=== PATIENT | female | born 1930 | race Caucasian/White ===

== ENCOUNTER 2019-10-29 14:48 | Inpatient (IN) | payer OTHER ==
[~2019-10-29] VITALS: Ht 167.6 cm; Wt 65.5 kg
[2019-10-29 15:30] LABS: Basophils # (auto) 0 10 ^3/uL (0-0.2); Basophils % (auto) 0.1 % (0.0-2.0); Eosinophils # (auto) 0 10 ^3/uL (0-0.8); Hematocrit 46.3 % (36.0-46.0); Hemoglobin 15.4 g/dL (12.2-16.2); Lymphocytes # (auto) 0.6 10 ^3/uL (0.4-5.4); Lymphocytes % (auto) 5.4 % (10.0-50.0); Mean Corpuscular Hgb Conc. 33.3 g/dL (32.0-36.0); Mean Corpuscular Volume 90.1 fL (80.0-100.0); Monocytes # (auto) 0.7 10 ^3/uL (0-1.3); Neutrophils # (auto) 10.6 10 ^3/uL (1.6-8.6); Neutrophils % (auto) 88.5 % (37.0-80.0); Platelet Count (auto) 163 10^3/uL (140-450); Red Blood Cells 5.14 10^6/uL (4.0-5.20); Red Cell Distribution Width 14.3 % (11.8-14.3)
[2019-10-29 15:43] LABS: Albumin 1.8 g/dL (3.4-5.0)
[2019-10-29 15:47] LABS: BUN/Creatinine Ratio 26.1; Total Protein 3.9 g/dL (6.4-8.2)
[2019-10-29] MEDS ORDERED: cloNIDine HCL 0.1 MG TAB PO ONE (16:15)
[2019-10-29 16:17] LABS: Potassium 2.2 mmol/L (3.5-5.1)
[2019-10-29 16:18] LABS: Calcium 5.1 mg/dL (8.5-10.1)
[2019-10-29] MEDS ORDERED: CALCIUM GLUC 4.65meq/50ml D5AE 50 ML IV ONE (16:30)
[2019-10-29] MEDS ORDERED: POTASSIUM EFFERVESENT TAB 25 MEQ PO ONE (16:30)
[2019-10-29 16:49] LABS: INR 1.12 (0.9-1.15); Partial Thromboplastin Time 29.9 sec (23.0-31.2)
[2019-10-29] MEDS ORDERED: SODIUM CHLORIDE 0.9% 500 ML IVB ONE (17:07)
[2019-10-29] MEDS ORDERED: SODIUM CHLORIDE 0.9% 1,000 ML IV ONE (17:07)
[2019-10-29] MEDS ORDERED: LABETALOL HCL 5 MG/ML 4ML SYRINGE IV ONE (17:15)
[2019-10-29 18:19] LABS: Magnesium 2.5 mg/dL (1.6-2.6)
[2019-10-29] MEDS ORDERED: ONDANSETRON HCL 4 MG/2 ML VIAL IV ONE (18:30)
[2019-10-29] MEDS ORDERED: cefTRIAXone 1GM/50ML D5W 50 ML IV ONE ×2 (18:30→20:00)
[2019-10-29 18:51] LABS: Urine Bacteria MOD /hpf (None Seen); Urine Blood 1+ /uL (Negative); Urine Specific Gravity 1.015 (1.001-1.035); Urine WBC 668 /hpf (0 - 5); Urine WBC Clumps PRESENT /hpf (None Seen)
[2019-10-29 19:17] LABS: Calcium 9.6 mg/dL (8.5-10.1); Potassium 3.8 mmol/L (3.5-5.1)
[2019-10-29] MEDS ORDERED: ENOXAPARIN SOD 100 MG/1 ML SYRINGE SC ONE (20:00)
[2019-10-29] MEDS ORDERED: NITROGLYCERIN 0.4 MG SL TAB SL PRN (20:00)
[2019-10-29] MEDS ORDERED: hydrALAZINE HCL 20 MG/ML VL IV PRN (20:00)
[2019-10-29] MEDS ORDERED: MORPHINE SULF INJ 2 MG/ML SYRINGE 1ML IV PRN (20:00)
[2019-10-29] MEDS: D5W/SOD CHL 0.45%/KCL 20MEQ 1,000 ML IV SCH (21:09)
[2019-10-29 22:00] VITALS: BP 153/70
--- NOTE | 2019-10-29 23:15 | NUR ---
Pt arrived on unit. No s/s of distress at this time. Pt confused and disoriented, garbled language, distractible. Pt oriented to unit, provided with call light. Pt in A bed has sitter and was asked to monitor B bed as needed. Charge nurse notified, possible sitter assignment for AM shift. Pt heart rate noted to run bradycardic at 50-60bpm. Pt will occasionally drop to mid 30s briefly and return to baseline. When stimulated, HR will be steady in the 60s bpm. All needs addressed at this time. Safety measures in place, bed in lowest position, bed rails raised x2, call light within reach. Will continue to
--- NOTE | 2019-10-30 02:30 | NUR ---
Supervisor [employer] consult placed for unstable and inadequate living situation.
[2019-10-30] MEDS: D5W/SOD CHL 0.45%/KCL 20MEQ 1,000 ML IV SCH (04:20)
[2019-10-30 05:00] VITALS: BP 130/54
--- NOTE | 2019-10-30 05:29 | NUR ---
Attempted to contact daughter Shirley to obtain pt history. Pt not able to coherently respond to questions. Will attempt to contact again and relay message to day RN.
[2019-10-30 05:51] LABS: Basophils # (auto) 0 10 ^3/uL (0-0.2); Basophils % (auto) 0.2 % (0.0-2.0); Eosinophils # (auto) 0 10 ^3/uL (0-0.8); Eosinophils % (auto) 0.1 % (0.0-7.0); Hematocrit 43.3 % (36.0-46.0); Hemoglobin 14.6 g/dL (12.2-16.2); Lymphocytes # (auto) 1.1 10 ^3/uL (0.4-5.4); Lymphocytes % (auto) 8.5 % (10.0-50.0); Mean Corpuscular Hemoglobin 30.6 pg (28.0-32.0); Mean Corpuscular Hgb Conc. 33.7 g/dL (32.0-36.0); Mean Corpuscular Volume 90.9 fL (80.0-100.0); Monocytes # (auto) 1.1 10 ^3/uL (0-1.3); Monocytes % (auto) 9.1 % (0.0-12.0); Neutrophils # (auto) 10.4 10 ^3/uL (1.6-8.6); Neutrophils % (auto) 82.1 % (37.0-80.0); Platelet Count (auto) 169 10^3/uL (140-450); Red Blood Cells 4.76 10^6/uL (4.0-5.20); White Blood Cell 12.7 10^3/uL (4.4-10.8)
[2019-10-30 06:10] LABS: Albumin 2.9 g/dL (3.4-5.0); Calcium 8.4 mg/dL (8.5-10.1); Magnesium 2.4 mg/dL (1.6-2.6); Potassium 4.5 mmol/L (3.5-5.1)
[2019-10-30 06:14] LABS: BUN/Creatinine Ratio 17.4; Bilirubin, Total 0.8 mg/dL (0.2-1.0); Phosphorus 4.6 mg/dL (2.5-4.90); Total Protein 6.2 g/dL (6.4-8.2)
[2019-10-30 06:29] LABS: INR 1.19 (0.9-1.15); Partial Thromboplastin Time 39.6 sec (23.0-31.2)
[2019-10-30] MEDS ORDERED: VANCOMYCIN 1GM/250ML 250 ML IV ONE (07:00)
[2019-10-30] MEDS ORDERED: MORPHINE SULF INJ 2 MG/ML SYRINGE 1ML IV PRN ×2 (07:00)
[2019-10-30] MEDS ORDERED: SPIRONOLACTONE 25 MG TAB PO ONE (07:00)
[2019-10-30] MEDS ORDERED: DOCUSATE SOD 100 MG CAP PO PRN (07:00)
[2019-10-30] MEDS ORDERED: NITROGLYCERIN 0.4 MG SL TAB SL PRN (07:00)
[2019-10-30] MEDS ORDERED: LORazepam 0.5 MG TAB PO PRN (07:00)
[2019-10-30] MEDS ORDERED: VANCOMYCIN PER PHARMACY 0 MG IV SCH (07:00)
[2019-10-30] MEDS ORDERED: ALUM & MAG HYDROX-SIMETH LIQ(MAALOX) 30 ML PO PRN (07:00)
[2019-10-30] MEDS ORDERED: ACETAMINOPHEN 325 MG TAB PO PRN (07:00)
[2019-10-30] MEDS ORDERED: ONDANSETRON HCL 4 MG/2 ML VIAL IV PRN (07:00)
[2019-10-30] MEDS ORDERED: LACTATED RINGER'S 1,000 ML IV ONE (07:00)
[2019-10-30] MEDS ORDERED: LISINOPRIL 20 MG TAB PO ONE (07:00)
[2019-10-30] MEDS ORDERED: CALCIUM W/VIT D (600MG/400IU) TAB PO ONE (07:15)
[2019-10-30] MEDS ORDERED: POTASSIUM CHL 20 Meq TABLET PO ONE (07:15)
[2019-10-30] MEDS ORDERED: MAGNESIUM SULFATE 1GM/100ML 100 ML IV ONE (07:15)
[2019-10-30] MEDS ORDERED: SOD CHL 0.9%/ KCL 20MEQ 1,000 ML IV SCH (07:45)
[2019-10-30] MEDS ORDERED: hydrALAZINE HCL 20 MG/ML VL IV PRN (07:45)
[2019-10-30 09:00] VITALS: BP 129/74
[2019-10-30] MEDS ORDERED: METOPROLOL SUCCINATE XL 50 MG TAB PO SCH (10:00)
[2019-10-30] MEDS: ASPirin 81 mg TAB PO SCH (11:15)
[2019-10-30] MEDS: ENOXAPARIN SOD 30 MG/0.3 ML SYRINGE SC SCH (11:16)
[2019-10-30] MEDS: HYDROcodone-ACET 5/325MG TAB PO PRN ×2 (11:21→22:21)
[2019-10-30] MEDS ORDERED: SODIUM CHLORIDE 0.9% 1,000 ML IV ONE (11:45)
--- NOTE | 2019-10-30 11:51 | NUR ---
assessment re:ss consult Patient is a 89 year old female who is confused. Prior to admission patient lived home with her daughter Shirley who is patients caregiver. I spoke to patients daughter Stefany who is POA and she will be faxing me the POA. Per Stefany patient had a fall at home getting out of bed. Shirley found patient on the floor and called 911. Patient will need rehab on discharge. Patients PCP is Dr Fish. Patient has a cane at home. Patient will also need a fww before discharging from SNF. SS consult states patient lives alone. Patient does not live alone, she lives with her daughter. Patient is confused and family will be setting up more help in the home. I have provided Stefany with [facility] resources and private pay resources. I will continue to monitor and follow up as appropriate. Stefany verbalized understanding and agreed to discharge plan to SNF. Addendum: 10/30/19 at 1206 by Maura CAREY Amended: Links added.
[2019-10-30] MEDS: PIPERACILLIN-TAZOB 2.25GM 50 ML IV SCH ×3 (11:59→23:50)
--- NOTE | 2019-10-30 12:29 | NUR ---
CT Chest - need consent Patient is unable to sign consent. Spoke with daughter, Shirley, and she said she would need to speak with her brother and sister before she would consent to anything. She will call and notify this nurse when a decision has been made.
[2019-10-30] MEDS: SODIUM CHLORIDE 0.9% 1,000 ML IV SCH (13:00)
[2019-10-30 15:28] VITALS: BP 121/60
[2019-10-30] MEDS ORDERED: IOHEXOL 350 MG/ML 100ML IJ ONE (15:41)
[2019-10-30] MEDS ORDERED: AML5T PO (16:15)
[2019-10-30] MEDS ORDERED: CAR3125T PO (16:15)
[2019-10-30 18:00] LABS: Urine Bacteria NONE SEEN /hpf (None Seen); Urine Blood 2+ /uL (Negative); Urine Hyaline Cast FEW /lpf (0 - 2); Urine Mucus FEW (None Seen); Urine WBC 89 /hpf (0 - 5)
[2019-10-30 18:01] LABS: Urine Specific Gravity > 1.050 (1.001-1.035)
[2019-10-30 18:04] LABS: Alcohol, Urine < 3.0 mg/dL (0-10); Amphetamine Screen, Urine NEGATIVE (NEGATIVE); Barbiturate Scree,Urine NEGATIVE (NEGATIVE); Benzodiazephine Screen, Urine NEGATIVE (NEGATIVE); Cannabinoid Screen, Urine NEGATIVE (NEGATIVE); Cocaine Screen, Urine NEGATIVE (NEGATIVE); Opiate Scree,Urine NEGATIVE (NEGATIVE); Phencyclidine Screen, Urine NEGATIVE (NEGATIVE); Sodium Urine 55 mmol/L (40-220)
[2019-10-30] MEDS: CALCIUM W/VIT D (600MG/400IU) TAB PO SCH (18:21)
--- NOTE | 2019-10-30 19:25 | NUR ---
Opening Shift Note Received report from Josiane MCCRACKEN. Assumed care of patient, awake but confused. Responds to questions slowly and repeating words. Sitter at bedside for safety. No S/S of distress/SOB or pain. Instructed on POC and to call for assist PRN. Fall precaution measures in place, will continue to monitor for changes Q1hr and PRN.
[2019-10-30 21:44] VITALS: BP 126/76
[2019-10-30] MEDS: METOPROLOL TARTRATE 25 MG TAB PO SCH (22:00)
[2019-10-30] MEDS ORDERED: LORazepam 2MG/ML-1ML VIAL IV PRN (22:15)
[2019-10-30] MEDS: MAGNESIUM OXIDE 400 MG TAB PO SCH (22:18)
[2019-10-30] MEDS: ATORVASTATIN 20 MG TAB PO SCH (22:18)
--- NOTE | 2019-10-30 22:21 | NUR ---
Complains of left side rib pain at 8/10, [place] PO given per order, continue care.
--- NOTE | 2019-10-30 23:50 | NUR ---
Pain level is 0, patient is sleeping, continue care.
[2019-10-31] MEDS: SODIUM CHLORIDE 0.9% 1,000 ML IV SCH ×4 (02:30→21:10)
[2019-10-31 05:00] VITALS: BP 135/56
[2019-10-31] MEDS: PIPERACILLIN-TAZOB 2.25GM 50 ML IV SCH (05:50)
[2019-10-31] MEDS: HYDROcodone-ACET 5/325MG TAB PO PRN ×2 (05:51→14:34)
--- NOTE | 2019-10-31 06:10 | NUR ---
Wound photo taken on L posterior upper arm. Wound care consult placed.
[2019-10-31 06:22] LABS: Basophils # (auto) 0 10 ^3/uL (0-0.2); Basophils % (auto) 0.4 % (0.0-2.0); Eosinophils # (auto) 0 10 ^3/uL (0-0.8); Eosinophils % (auto) 0.4 % (0.0-7.0); Hematocrit 39.4 % (36.0-46.0); Hemoglobin 13.1 g/dL (12.2-16.2); Lymphocytes % (auto) 10.3 % (10.0-50.0); Mean Corpuscular Hemoglobin 30.4 pg (28.0-32.0); Mean Corpuscular Hgb Conc. 33.3 g/dL (32.0-36.0); Mean Corpuscular Volume 91.2 fL (80.0-100.0); Monocytes # (auto) 0.8 10 ^3/uL (0-1.3); Neutrophils # (auto) 7.4 10 ^3/uL (1.6-8.6); Neutrophils % (auto) 79.9 % (37.0-80.0); Platelet Count (auto) 175 10^3/uL (140-450); Red Blood Cells 4.32 10^6/uL (4.0-5.20); Red Cell Distribution Width 14.3 % (11.8-14.3); White Blood Cell 9.3 10^3/uL (4.4-10.8)
[2019-10-31 06:31] LABS: BUN/Creatinine Ratio 19.3; Calcium 8.1 mg/dL (8.5-10.1); Potassium 5.1 mmol/L (3.5-5.1)
[2019-10-31] MEDS: CALCIUM W/VIT D (600MG/400IU) TAB PO SCH (08:33)
[2019-10-31 09:00] VITALS: BP 130/53
[2019-10-31] MEDS: ASPirin 81 mg TAB PO SCH (09:50)
[2019-10-31] MEDS: MAGNESIUM OXIDE 400 MG TAB PO SCH ×2 (09:50→22:28)
[2019-10-31] MEDS: ENOXAPARIN SOD 30 MG/0.3 ML SYRINGE SC SCH (09:50)
[2019-10-31] MEDS: METOPROLOL TARTRATE 25 MG TAB PO SCH ×2 (09:51→22:28)
[2019-10-31] MEDS ORDERED: LISINOPRIL 20 MG TAB PO SCH (10:00)
[2019-10-31] MEDS ORDERED: SPIRONOLACTONE 25 MG TAB PO SCH (10:00)
[2019-10-31] MEDS ORDERED: POTASSIUM CHL 20 Meq TABLET PO SCH (10:00)
--- NOTE | 2019-10-31 10:20 | NUR ---
WOUND CARE NOTE: Wound care in to see patient per wound care request regarding "wound on Lt posterior arm" that are noted present on admission. Bedside nurse took photograph of patient's wound upon admission for reference. Patient is 89 years old female with admitting diagnosis of Severe Electrolyte Imbalance with EKG changes. Patient is resting in bed in Rm. 293B. Patient is awake, alert and oriented to self. Patient appears to be in mild pain, NAWAF Cisneros at bedside. Patient needs assistance in turning and repositioning and her Rich score is 13. Skin assessment done with the help of nurse's aide at bedside. Patient's posterior L upper arm noted with large skin tear (8x1cm) on ecchymotic skin. Minimal serosanguineous drainage noted, no odor noted. Large ecchymosis noted to her L L upper back and L lower back/upper buttock area. On report's patient lives alone and she's found down at home by her family. Cleansed patient's L upper arm skin tear with wound cleanser, patted dry with gauze, applied Thera honey gauze, covered with Telfa (non-adherent gauze)wrapped with Kerlix and secured with tape. Z Guard applied to patient's sacral/buttocks as preventative. Repositioned patient for comfort on her back, redistributed pressure points with pillows. Bed in low position, nurse's aide at bedside. RECOMMENDATION: Nursing to continue with BID/PRN cleaning and application of Z Guard cream to sacral, buttocks as preventative; Q3Days/PRN dressing change to L upper arm wound per MD order, frequent turning and repositioning schedule as condition permits, redistribute pressure points with pillows, elevate heels on pillows, continue monitoring by wound care while patient is hospitalized. Addendum: 10/31/19 at 1539 by Lisa Huff RN Amended: Links added.
[2019-10-31 11:00] LABS: Protein, Urine 47.1 mg/dL (0.0-11.9)
[2019-10-31] MEDS ORDERED: SODIUM CHLORIDE 0.9% 1,000 ML IV ONE ×2 (11:00→16:30)
[2019-10-31 13:02] VITALS: BP 146/50
--- NOTE | 2019-10-31 14:15 | NUR ---
ELECTROENCEPHALOGRAM EEG COMPLETED AT BEDSIDE. PRIMARY RN SARBJIT DAVILA.
[2019-10-31 15:51] LABS: Calcium 7.9 mg/dL (8.5-10.1); Potassium 5.3 mmol/L (3.5-5.1)
[2019-10-31 15:56] LABS: Folate (Folic Acid) 3.98 ng/mL (5.38-24)
--- NOTE | 2019-10-31 16:17 | NUR ---
D/C planning Regarding social service consult for SNF placement. Faxed clinical information to contracted facilities with health plan [facility]. Per Lori with [facility] they can accept patient but they will need a (-) COVID test before patient can be transfer to facility ) Fax:). Covid test will need to be faxed to facility. Contact CARMELA Chung with [facility] medical group advising her [facility] has accepted patient. Per CARMELA Chung they will authorized SNF and [facility]. [facility] is ON WILL CALL ).
--- NOTE | 2019-10-31 16:26 | NUR ---
DR. CONWAY NOTIFIED FOR K 5.3, WAITING FOR CALL BACK.
[2019-10-31 17:00] VITALS: BP 137/55
--- NOTE | 2019-10-31 19:20 | NUR ---
Opening Shift Note Received report from Amelia MCCRACKEN. Assumed care of patient, awake and alert x3. Sitter at bedside for safety. No S/S of distress/SOB or pain. Instructed on POC and to call for assist PRN. Fall precaution measures in place, will continue to monitor for changes Q1hr and PRN.
[2019-10-31] MEDS ORDERED: CYANOCOBALAMIN (B-12) 1000 MCG/1 ML VIAL IM ONE (19:45)
[2019-10-31 22:11] VITALS: BP 158/63
[2019-10-31] MEDS: ATORVASTATIN 20 MG TAB PO SCH (22:28)
[2019-10-31 22:41] LABS: BUN/Creatinine Ratio 22.5; Calcium 7.6 mg/dL (8.5-10.1)
[2019-10-31 22:59] LABS: Potassium 5.6 mmol/L (3.5-5.1)
--- NOTE | 2019-10-31 23:39 | NUR ---
Call to Dr. Srinivasan Shook exchange, it was Dr. Mendes's voice mail. Left message re critical Potassium level of 5.6. Awaiting for call back.
--- NOTE | 2019-10-31 23:50 | NUR ---
Dr. Mckeon called back and received order to give Veltassa 8.4gm PO x 1 dose, if not available may give D5W 1L + Sodium Bicarb 2 amp at 125ml/hr. Carried out and followed through.
[2019-11-01] MEDS ORDERED: SODIUM BICARBONATE 50ML VIAL 100 ML in D5W 5% 1,000 ML IV SCH ×2
[2019-11-01] MEDS ORDERED: SODIUM BICARBONATE 8.4 % INJ 50ML VIAL IV ONE (00:30)
[2019-11-01] MEDS ORDERED: SODIUM ZIRCONIUM CYCL 10 GM PAK PO ONE (00:45)
--- NOTE | 2019-11-01 00:48 | NUR ---
Veltassa medication is not available, so patient was started on D5W 1L + 2 amps Sodium Bicarbonate.
--- NOTE | 2019-11-01 00:50 | NUR ---
Call to Dr. Nelson Shook exchange, it was Dr. Mendes's voice mail. Left message to clarify whether to give Dr. Shook order of Lokelma 10mg in lieu of Veltassa. As per communication with Dr. Mendes earlier, if Veltassa is not available, start patient on D5W + Sodium Bicarbonate. Patient was started on fluids prior to the Lokelma order, hence the need for clarification. Awaiting for call back.
--- NOTE | 2019-11-01 01:27 | NUR ---
Call back from Dr. Mendes Per , give Lokelma 10mg x1 dose now, continue D5W + 2 amp Sodium Bicarb x 1bag only and repeat labs in the morning.
[2019-11-01] MEDS: cefTRIAXone 1GM/50ML D5W 50 ML IV SCH ×2 (01:40→09:50)
[2019-11-01] MEDS: HYDROcodone-ACET 5/325MG TAB PO PRN ×3 (02:08→17:46)
[2019-11-01 05:00] VITALS: BP 158/74
[2019-11-01 05:29] LABS: BUN/Creatinine Ratio 21.5; Calcium 7.5 mg/dL (8.5-10.1); Potassium 4.8 mmol/L (3.5-5.1)
--- NOTE | 2019-11-01 06:14 | NUR ---
Patient's son called and updated on the POC, he verbalized understanding.
[2019-11-01 09:20] VITALS: BP 140/63
--- NOTE | 2019-11-01 09:29 | NUR ---
SPOKE WITH KEYBOARDING CLERK ROSETTA, SHE GAVE INSTRUCTION TO FAX PHYSICAL THERAPY EVALUATION TO [facility] AND COVID TEST TO [facility]. PER ROSETTA PT WILL GO TO [facility] ROOM 1A, ACCEPTING DOCTOR Immanuel GRACIA [facility] ON WILL CALL.
[2019-11-01] MEDS: MAGNESIUM OXIDE 400 MG TAB PO SCH (09:51)
[2019-11-01] MEDS: ENOXAPARIN SOD 30 MG/0.3 ML SYRINGE SC SCH (09:51)
[2019-11-01] MEDS: ASPirin 81 mg TAB PO SCH (09:51)
[2019-11-01] MEDS ORDERED: CYANOCOBALAMIN 500 MCG TAB PO SCH (10:00)
[2019-11-01] MEDS ORDERED: FOLIC ACID 1 MG in D5W 5% 50 ML IV SCH (10:00)
[2019-11-01] MEDS: METOPROLOL TARTRATE 25 MG TAB PO SCH (10:00)
--- NOTE | 2019-11-01 10:30 | NUR ---
FAXED PHYSICAL THERAPY EVALUATION TO [facility] AND COVID TEST TO [facility].
[2019-11-01] MEDS ORDERED: SODIUM CHLORIDE 0.9% 1,000 ML IV ONE (12:00)
[2019-11-01 13:03] VITALS: BP 134/63
--- NOTE | 2019-11-01 14:04 | NUR ---
PT SEEN BY DR. CONWAY, HE SAID PT CAN BE DISCHARGED TO SNF.
--- NOTE | 2019-11-01 14:15 | NUR ---
CHAN GUPTA RE: DISCHARGE CLEARANCE Addendum: 11/01/19 at 1423 by Amelia Reyes RN DR. GUPTA CALLED BACK, HE SAID PT IS CLEARED FOR DISCHARGE.
--- NOTE | 2019-11-01 14:18 | NUR ---
PAGED DR. GOMEZ RE: DISCHARGE CLEARANCE.
[2019-11-01 14:31] VITALS: BP_SYST 134; BP_SYST 140; BP_DIAS 63
--- NOTE | 2019-11-01 14:47 | NUR ---
SPOKE WITH DR. PEREZ, MADE AWARE DR. CONWAY WILL DISCHARGE THE PT TO SNF. HE SAID HE WILL COME SEE THE PT.
[2019-11-01 15:45] LABS: Calcium 7.8 mg/dL (8.5-10.1); Potassium 4.6 mmol/L (3.5-5.1)
--- NOTE | 2019-11-01 15:58 | NUR ---
PAGESteffen GOMEZ RE: DISCHARGE CLEARANCE. Addendum: 11/01/19 at 1604 by Amelia Reyes RN DR. GOMEZ CALLED BACK, MADE AWARE OF THE LATEST BUN AND CREATININE, HE SAID PT IS CLEARED FOR DISCHARGE.
--- NOTE | 2019-11-01 16:52 | NUR ---
pt seen by Dr. Vaughn, he said pt is cleared for discharge to SNF.
--- NOTE | 2019-11-01 16:59 | NUR ---
CALLED [facility] WITH ETA 1800.
[2019-11-01 17:00] VITALS: BP 133/61
--- NOTE | 2019-11-01 17:13 | NUR ---
REPORT CALLED TO NAWAF ESCOBAR AT [facility].
--- NOTE | 2019-11-01 17:38 | NUR ---
DISCHARGE WOUND PHOTO TAKEN.
--- NOTE | 2019-11-01 18:05 | NUR ---
Discharge TO [facility]. Encourage to follow up with DR. PEREZ, DR. GOMEZ, DR. GUPTA AND NAWAF PEARSON OF [facility] INFORMED PT WILL NEED FOLLOW UP APPOINTMENT. All questions and concerns addressed. Patient verbalized understanding. Medication reconciliation form completed and copy given to patient. IV removed with catheter intact, pressure dressing applied. Telemetry unit returned to ICU. Patient taken to vehicle via GURNEY with all personal belongings, accompanied by [facility] staff and family member. No distress noted at time of departure.
== END 2019-11-01 18:05 | DRG 682 ==
LOC: EDBD 14:48 → ER 14:48 → TELE 14:49 → TELE-WESTW 22:47
PROVIDERS: ADMIT Hospitalist; ATTEND Internal Medicine
DX: N17.0 Acute kidney failure with tubular necrosis (principal); J18.9 Pneumonia, unspecified organism; G92 Toxic encephalopathy; S22.42XA Multiple fractures of ribs, left side, initial encounter for closed fracture; I13.0 Hypertensive heart and chronic kidney disease with heart failure and stage 1 through stage 4 chronic kidney disease, or unspecified chronic kidney disease; I67.4 Hypertensive encephalopathy; I16.1 Hypertensive emergency; N39.0 Urinary tract infection, site not specified; R55 Syncope and collapse; Y92.009 Unspecified place in unspecified non-institutional (private) residence as the place of occurrence of the external cause; E87.6 Hypokalemia; E83.51 Hypocalcemia; M17.11 Unilateral primary osteoarthritis, right knee; G30.9 Alzheimer's disease, unspecified; F02.80 Dementia in other diseases classified elsewhere, unspecified severity, without behavioral disturbance, psychotic disturbance, mood disturbance, and anxiety; F01.50 Vascular dementia, unspecified severity, without behavioral disturbance, psychotic disturbance, mood disturbance, and anxiety; K21.9 Gastro-esophageal reflux disease without esophagitis; K29.70 Gastritis, unspecified, without bleeding; N18.3 Chronic kidney disease, stage 3 (moderate); I50.9 Heart failure, unspecified; G89.29 Other chronic pain; M54.9 Dorsalgia, unspecified; M19.90 Unspecified osteoarthritis, unspecified site; E78.5 Hyperlipidemia, unspecified; R53.81 Other malaise; I16.0 Hypertensive urgency; F41.9 Anxiety disorder, unspecified; E86.0 Dehydration; Z03.818 Encounter for observation for suspected exposure to other biological agents ruled out; Z90.49 Acquired absence of other specified parts of digestive tract; Z79.899 Other long term (current) drug therapy; E53.8 Deficiency of other specified B group vitamins
CPT/HCPCS: 36415; 70450; 71045; 71275; 73030; 73562; 74176; 80048; 80053; 80061; 80202; 80307; 81001; 82088; 82550; 82570; 82607; 82746; 83036; 83690; 83735; 84100; 84156; 84244; 84300; 84443; 84484; 85025; 85610; 85730; 87040; 87086; 93005; 93306; 93886; 93975; 95819; G0378; J0610; J0696; J2405; J2543; J3490; J7060